=== PATIENT | male | born 1945 | race Caucasian/White ===

== ENCOUNTER 2023-06-07 23:02 | Emergency (ER) | payer MEDICARE, SELFPAY ==
[2023-06-07 23:13] VITALS: BP 136/79; PULSE 106; RESP 20; TEMP 38.3; BMI 39.1
--- NOTE | 2023-06-07 23:33 | ECG_ITS ---
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
--- NOTE | 2023-06-07 23:33 | ED.GENADUL1 ---
HPI - General Adult General Chief complaint: Fever Stated complaint: FLU LIKE SYMPTOMS Time Seen by Provider: 06/07/23 23:23 Source: patient Mode of arrival: walk-in Limitations: no limitations History of Present Illness HPI narrative: This 77-year-old male with no significant medical history presents for evaluation of one day of generalized illness. The patient states around 1 AM last night he started having some chills and shakes broke out in a sweat. Since that time he has had several additional episodes of fevers and chills and sweats. He states he has slept all day and generally does not feel well. He did eat half of a breakfast sandwich for breakfast earlier today but has not had anything to eat besides that. He has been drinking water throughout the day. He denies any headache. He has no neck pain. He has some nausea prior to arrival and some dry heaves. He has been urinating frequently but denies any dysuria. He denies any chest pain or shortness of breath. He is not coughing. He has no abdominal pain or back pain. He has no skin rash. He has not had any diarrhea. Related Data Home Medications Medication Instructions Recorded Confirmed No Known Home Medications 06/07/23 06/07/23 Allergies Allergy/AdvReac Type Severity Reaction Status Date / Time No Known Drug Allergies Allergy Verified 06/07/23 23:19 Review of Systems ROS Status of ROS 10 or more systems reviewed and unremarkable except as noted in history and below [facility] Surgical History (Updated 06/07/23 @ 23:20 by Norma Roldan) Social History Smoking status: Former smoker Exam Narrative Exam Narrative: Nurses note and vital signs reviewed; The patient is febrile with a temperature of 100.9 Fahrenheit, tachycardic with a pulse of 106, blood pressure is not elevated at 136/79, He is not hypoxic with pulse ox of 99 percent on room air General: The patient appears well and in no apparent distress. Patient is resting comfortably on cart. He is alert, conversant, no respiratory distress, does not appear to be confused. Skin: Warm, dry, no pallor noted. There is no rash noted. Head: Normocephalic, atraumatic Eye: Normal conjunctiva, no drainage, EOMI. PERRL Ears, Nose, Mouth, and Throat: oral mucosa is dry Cardiovascular: Regular Rate and Rhythm S1 and S2, no murmurs rubs or gallops, pulses are brisk and equal bilaterally Respiratory: Patient is in no distress, no accessory muscle use, lungs are clear to auscultation, no wheezing, rales or rhonchi Back: non-tender, no CVA tenderness bilaterally to percussion. GI: Normal bowel sounds, no tenderness to palpation, no masses appreciated. No rebound, guarding, or rigidity noted. Musculoskeletal: The patient has no evidence of calf tenderness, no pitting edema, symmetrical pulses noted bilaterally Neurological: A&O x4, normal speech, No focal deficits, patient is ambulatory with a steady gait Psychiatric: Cooperative Constitutional Vital Signs, click to edit/add: Last Vital Signs Temp 100.0 F H 06/08/23 01:29 Pulse 86 06/08/23 01:29 Resp 16 06/08/23 01:29 BP 153/61 H 06/08/23 01:29 Pulse Ox 95 06/08/23 01:29 O2 Del Method Room Air 06/08/23 01:29 Course Vital Signs Vital signs: Vital Signs Temperature 100.9 F H 06/07/23 23:13 Pulse Rate 106 H 06/07/23 23:13 Respiratory Rate 20 06/07/23 23:13 Blood Pressure 136/79 H 06/07/23 23:13 Temperature 100.0 F H 06/08/23 01:29 Pulse Rate 86 06/08/23 01:29 Respiratory Rate 16 06/08/23 01:29 Blood Pressure 153/61 H 06/08/23 01:29 Pulse Oximetry 95 06/08/23 01:29 Oxygen Delivery Method Room Air 06/08/23 01:29 Medical Decision Making [facility] Narrative Medical decision making narrative: His otherwise healthy 77-year-old male presents to the emergency department for approximately 20 hours of fevers, chills, sweats him and nausea with one episode of dry heaves and urinary frequency. He does not have any flank pain. He does not have any abdominal pain, chest pain, cough. He has had Covid 19 vaccinations. On arrival he was noted to be febrile with a temperature greater than 100 degrees Fahrenheit and was mildly tachycardic with a pulse of 106. He has a normal blood pressure. He was nontoxic in appearance. EKG done upon arrival is a sinus rhythm at 99 bpm with a sinus arrhythmia. No acute changes were noted. Due to his fever and tachycardia a septic workup was initiated. An IV was placed and he was given a liter of normal saline and Tylenol for his fever 4 mg of Zofran for his nausea. Routine labs including CBC, comprehensive metabolic profile, troponin, urinalysis, 2 sets of blood cultures, lactic acid, COVID 19 and influenza testing was ordered. The patient has an elevated white count at 15.5. He has normal electrolytes. He has a mild elevation in his total bilirubin at 1.3. The remainder of his liver function tests are normal.Troponin is normal. Lactic acid is normal at 1.5. Covid 19 and influenza testing are negative. Chest x-ray was reviewed by radiology and read as normal or mild peribronchial cuffing. His urine is positive for leukocyte esterase, red blood cells and white blood cells. Urine culture is pending at this time. The patient was given 2 g of IV Rocephin. He was reevaluated and is feeling much better. The results of his studies were discussed with him. I offered him admission versus outpatient management of his urinary tract infection. The patient requests to be discharged home. He will be discharged home with prescription for Keflex 500 mg 4 times a day for the next 7 days. He was encouraged to drink plenty of fluids, use Tylenol and Motrin for recurrent fever. He'll also receive a prescription for Zofran to use if he has any ongoing nausea. The patient and his are in agreement with this plan. I encouraged him to return to the emergency department for worsening symptoms including abdominal pain, flank pain, confusion, ongoing fever greater than 48 hours, inability to tolerate medications or any concerns. Lab Data Lab results narrative: Patient has an elevated white count, he has a normal lactic acid, he has normal troponin, he has normal chemistries including BUN/creatinine. Mild elevation in his total bilirubin at 1.3. Urinalysis is positive for red blood cells, white blood cells and leukocyte esterase. COVID and influenza testing are negative Labs: Lab Results 06/07/23 06/07/23 Range/Units 00:10 23:20 WBC 15.5 H (4.0-11.0) 10^3/uL RBC 4.63 L (4.70-6.10) 10^6/uL Hgb 14.6 (14.0-18.0) g/dL Hct 42.3 (42.0-54.0) % MCV 91.4 (80.0-94.0) fL MCH 31.5 (25.9-34.0) pg MCHC 34.5 (29.9-35.2) g/dL RDW 13.5 (11.0-15.0) % Plt Count 222 (150-450) 10^3/uL MPV 9.8 (9.5-13.5) fL Neut % (Auto) 81.3 H (43.0-75.0) % Lymph % (Auto) 6.1 L (20.5-60.0) % [place] % (Auto) 9.0 (1.7-12.0) % Eos % (Auto) 2.7 (0.9-7.0) % Baso % (Auto) 0.4 (0.2-2.0) % Neut # (Auto) 12.6 H (1.4-6.5) 10^3/uL Lymph # (Auto) 1.0 L (1.2-3.8) 10^3/uL [place] # (Auto) 1.4 H (0.3-0.8) 10^3/uL Eos # (Auto) 0.4 (0.0-0.7) 10^3/uL Baso # (Auto) 0.1 (0.0-0.1) 10^3/uL Abs Immat Gran (auto) 0.08 H (0.00-0.03) 10^3/uL Imm/Tot Granulo (auto) 0.5 (0.0-0.5) % Sodium 135 L (136-145) mmol/L Potassium 3.5 (3.5-5.1) mmol/L Chloride 100 (98-107) mmol/L Carbon Dioxide 22.8 (21.0-32.0) mmol/L Anion Gap 15.7 BUN 30.0 H (7.0-18.0) mg/dL Creatinine 1.08 (0.70-1.30) mg/dL Est GFR ( Amer) >60 (>=60) Est GFR (Non-Af Amer) >60 (>=60) BUN/Creatinine Ratio 27.8 Glucose 131 H (74-106) mg/dL Lactate 1.5 (0.4-2.0) mmol/L Calcium 8.6 (8.5-10.1) mg/dL Total Bilirubin 1.3 H (0.2-1.0) mg/dL AST 22 (15-37) U/L ALT 32 (16-63) U/L Alkaline Phosphatase 36 L (46-116) U/L Troponin I High Sens 18.8 (4.0-76.1) pg/mL Total Protein 7.4 (6.4-8.2) g/dL Albumin 3.5 (3.4-5.0) g/dL Globulin 3.9 g/dL Albumin/Globulin Ratio 0.9 Urine Color Yellow (YELLOW) Urine Clarity Clear (CLEAR) Urine pH 5.5 (5.0-9.0) Ur Specific [place] >=1.030 A (1.005-1.025) Urine Protein 30 A (NEG/TRACE) mg/dL Urine Glucose (UA) Negative (NEGATIVE) mg/dL Urine Ketones >=80 A (NEGATIVE) mg/dL Urine Occult Blood Small A (NEGATIVE) Urine Nitrite Negative (NEGATIVE) Urine Bilirubin Negative (NEGATIVE) Urine Urobilinogen 1.0 (0.2-1.0) EU/dL Ur Leukocyte Esterase Trace A (NEGATIVE) Urine RBC 75-100 A (0-2) #/HPF Urine WBC 20-50 A (NONE SEEN) #/HPF Ur Squamous Epith Cells Few A (NONE/RARE) #/LPF Urine Crystals None seen (None Seen) #/HPF Urine Bacteria Small A (NONE SEEN) #/HPF Urine Casts None seen (NONE SEEN) #/LPF Urine Mucus Small A (NONE SEEN) Ur Culture Indicated? Yes SARS-CoV-2 (PCR) Negative (NEGATIVE) Influenza Type A Ag Negative Influenza Type B Ag Negative ECG Data Attestation: I personally reviewed and interpreted this ECG as follows: (Sinus rhythm at 90 beats for minute with sinus arrhythmia, left left axis deviation, nonspecific ST changes, no acute ST segment elevation or T-wave inversion) Discharge Plan Discharge Chief Complaint: Fever Clinical Impression: Acute UTI Patient Disposition: Home, Self-Care Time of Disposition Decision: 02:17 Condition: Good Prescriptions / Home Meds: No Action No Known Home Medications Instructions: Urinary Tract Infection in Men (ED) Stand Alone Forms: Portal Instructions Referrals: Joshua Watson MD [Primary Care Provider] - 1 week
--- NOTE | 2023-06-07 23:34 | XR_ITS ---
[facility] [place] [id number] Patient Name: ANGY MENA MRN: [id number] date: 1945 Sex: M Assigned Patient Location: ED.MAIN Current Patient Location: ER Accession/Order Number: [id number] Exam Date: 06/07/2023 23:48 Report Date: 06/08/2023 00:11 At the request of: DANYA MARKER Procedure: XR chest 2V EXAM: XR chest 2V HISTORY: fever COMPARISON: None. TECHNIQUE: PA and lateral views of the chest FINDINGS: There is no focal airspace consolidation. Peribronchial cuffing is noted. Mild left basilar reticular opacities, likely represent scarring or mild atelectasis. The cardiomediastinal silhouette is not enlarged. No evidence of pleural effusion or pneumothorax are identified. No acute osseous abnormality. XR/XR chest 2V IMPRESSION: No focal consolidation or pleural effusion. Mild peribronchial cuffing, suggestive of bronchitis. Electronically authenticated by: CONNIE YEUNG Date: 06/08/2023 00:11
[2023-06-07 23:56] LABS: Basophils Absolute Auto 0.1 10^3/uL (0.0-0.1); Basophils Percent Auto 0.4 % (0.2-2.0); Eosinophils Absolute Auto 0.4 10^3/uL (0.0-0.7); Eosinophils Percent Auto 2.7 % (0.9-7.0); Hematocrit 42.3 % (42.0-54.0); Hemoglobin 14.6 g/dL (14.0-18.0); Immature Granulocytes Abs Auto 0.08 10^3/uL (0.00-0.03); Immature Granulocytes Pct Auto 0.5 % (0.0-0.5); Lymphocytes Percent Auto 6.1 % (20.5-60.0); Mean Corpuscular HGB Conc 34.5 g/dL (29.9-35.2); Mean Corpuscular Hemoglobin 31.5 pg (25.9-34.0); Mean Corpuscular Volume 91.4 fL (80.0-94.0); Mean Platelet Volume 9.8 fL (9.5-13.5); Monocytes Absolute Auto 1.4 10^3/uL (0.3-0.8); Neutrophils Absolute Auto 12.6 10^3/uL (1.4-6.5); Neutrophils Percent Auto 81.3 % (43.0-75.0); Platelet Count 222 10^3/uL (150-450); Red Blood Count 4.63 10^6/uL (4.70-6.10); Red Cell Distribution Width 13.5 % (11.0-15.0); White Blood Count 15.5 10^3/uL (4.0-11.0)
[2023-06-07] MEDS: 0.9 % SODIUM CHLORIDE 1,000 ML 999 ML IV (23:56)
[2023-06-07] MEDS: ACETAMINOPHEN 325 MG TABLET 650 MG PO (23:57)
[2023-06-08 00:14] LABS: Lactate/Lactic Acid 1.5 mmol/L (0.4-2.0)
[2023-06-08 00:15] LABS: Alanine Aminotransferase 32 U/L (16-63); Albumin Globulin Ratio 0.9; Albumin Level 3.5 g/dL (3.4-5.0); Alkaline Phosphatase 36 U/L (46-116); Anion Gap 15.7; Aspartate Amino Transferase 22 U/L (15-37); BUN Creatinine Ratio 27.8; Bilirubin Total 1.3 mg/dL (0.2-1.0); Calcium 8.6 mg/dL (8.5-10.1); Carbon Dioxide 22.8 mmol/L (21.0-32.0); Chloride 100 mmol/L (98-107); Estimated GFR (African America >60 (>=60); Estimated GFR (Non-African Ame >60 (>=60); Globulin 3.9 g/dL; Glucose 131 mg/dL (74-106); Potassium 3.5 mmol/L (3.5-5.1); Sodium 135 mmol/L (136-145); Total Protein 7.4 g/dL (6.4-8.2); Troponin I High Sensitivity 18.8 pg/mL (4.0-76.1)
[2023-06-08 00:36] VITALS: BP 144/68; PULSE 87; RESP 20; TEMP 38.1; O2SAT 96
[2023-06-08 00:58] LABS: Bilirubin Urine NEGATIVE (NEGATIVE); Blood Urine SMALL (NEGATIVE); Clarity Urine CLEAR (CLEAR); Color Urine YELLOW (YELLOW); Glucose Urine UA NEGATIVE (NEGATIVE); Ketones Urine >=80 mg/dL (NEGATIVE); Leukocyte Esterase Urine TRACE (NEGATIVE); Nitrite Urine NEGATIVE (NEGATIVE); Protein Urine 30 mg/dL (NEG/TRACE); Specific Gravity Urine >=1.030 (1.005-1.025); pH Urine 5.5 (5.0-9.0)
[2023-06-08 01:06] LABS: Urine Microscopic Indicated YES
[2023-06-08 01:07] LABS: Bacteria Urine SMALL #/HPF (NONE SEEN); Crystals Seen? None Seen #/HPF (None Seen); Mucus Urine SMALL (NONE SEEN); RBC Urine 75-100 #/HPF (0-2); Squamous Epithelial Cell Urine FEW #/LPF (NONE/RARE); WBC Urine 20-50 #/HPF (NONE SEEN)
[2023-06-08 01:08] LABS: Cast Seen? NONE SEEN #/LPF (NONE SEEN); Urine Culture Indicated YES
[2023-06-08 01:14] LABS: SARS-CoV-2 Ag NEGATIVE (NEGATIVE)
[2023-06-08 01:15] LABS: Influenza Virus A Antigen Negative; Influenza Virus B Antigen Negative; Internal Control Within Normal Limits
[2023-06-08 01:29] VITALS: BP 153/61; PULSE 86; RESP 16; TEMP 37.8; O2SAT 95
[2023-06-08] MEDS: CEFTRIAXONE 2,000 MG in 0.9 % SODIUM CHLORIDE 100 ML 200 MG IV (01:36)
[2023-06-08 15:15] LABS: SARS-CoV-2 NAA NOT DETECTED (NOT DETECTE)
[2023-06-08 23:55] LABS: A. calcoaceticus-baumannii Cpx NOT DETECTED (NOT DETECTE); Bacteroides fragilis NOT DETECTED (NOT DETECTE); Candida albicans NOT DETECTED (NOT DETECTE); Candida auris NOT DETECTED (NOT DETECTE); Candida glabrata NOT DETECTED (NOT DETECTE); Candida krusei NOT DETECTED (NOT DETECTE); Candida parapsilosis NOT DETECTED (NOT DETECTE); Candida tropicalis NOT DETECTED (NOT DETECTE); Cryptococcus neoformans/gattii NOT DETECTED (NOT DETECTE); Enterobacter cloacae complex NOT DETECTED (NOT DETECTE); Enterobacterales NOT DETECTED (NOT DETECTE); Enterococcus faecalis NOT DETECTED (NOT DETECTE); Enterococcus faecium NOT DETECTED (NOT DETECTE); Haemophilus influenzae NOT DETECTED (NOT DETECTE); Klebsiella aerogenes NOT DETECTED (NOT DETECTE); Klebsiella pneumoniae group NOT DETECTED (NOT DETECTE); Listeria monocytogenes NOT DETECTED (NOT DETECTE); Neisseria meningitidis NOT DETECTED (NOT DETECTE); Proteus spp. NOT DETECTED (NOT DETECTE); Pseudomonas aeruginosa NOT DETECTED (NOT DETECTE); Salmonella spp. NOT DETECTED (NOT DETECTE); Serratia marcescens NOT DETECTED (NOT DETECTE); Staphylococcus epidermidis NOT DETECTED (NOT DETECTE); Staphylococcus lugdunensis NOT DETECTED (NOT DETECTE); Stenotrophomonas maltophilia NOT DETECTED (NOT DETECTE); Streptococcus agalactiae NOT DETECTED (NOT DETECTE); Streptococcus pneumoniae NOT DETECTED (NOT DETECTE); Streptococcus pyogenes NOT DETECTED (NOT DETECTE); Streptococcus spp. NOT DETECTED (NOT DETECTE)
[2023-06-09 04:39] LABS: Staphylococcus spp. DETECTED (NOT DETECTE)
== END 2023-06-08 02:30 | disposition home or self-care (01) ==
PROVIDERS: Emergency Provider Emergency Medicine; PCP Internal Medicine
DX: N39.0 Urinary tract infection, site not specified (principal); R50.9 Fever, unspecified; R00.0 Tachycardia, unspecified; Z20.822 Contact with and (suspected) exposure to COVID-19; Z87.891 Personal history of nicotine dependence
CPT/HCPCS: 36415; 71046; 80053; 81001; 81003; 83605; 84484; 85025; 87040; 87086; 87150; 87186; 87635; 87804; 87811; 93005; 96374; 99285